=== PATIENT | female | born 1995 | race Caucasian/White ===

== ENCOUNTER 2022-04-13 12:08 | Emergency (ER) | payer OTHER ==
[2022-04-13] MEDS ORDERED: CHERRY SYRUP 10 ML UDC PO ONE (13:09)
[2022-04-13] MEDS ORDERED: DEXAMETHASONE 10 MG/ML VIAL PO STA (13:09)
[2022-04-13] MEDS ORDERED: IPRATROPIUM/ALBUTEROL 3 ML NEB INH STA (13:09)
--- NOTE | 2022-04-13 13:13 | ED Physician Documentation ---
PD HPI CHEST PAIN - Stated complaint Stated Complaint: SOA/CHEST PX - Chief complaint Chief Complaint: Cardiac - History obtained from History obtained from: Patient - History of Present Illness Timing - onset: Last night Timing - onset during: Rest Timing - duration: Hours Timing - details: Gradual onset, Still present Quality: Aching, Sharp Location: Left chest, Left shoulder/arm, Upper back Radiation: No: Jaw, Neck, Back, Abdominal, Left upper extremity, Right upper extremity Improved by: Rest Worsened by: Inspiration, Movement, Palpation Associated symptoms: Shortness of air Similar symptoms before: Diagnosis (asthma exacerbation) Recently seen: Not recently seen - Additional information Additional information: 26-year-old female with a history of asthma since age 15 has had a worsening of her asthma since getting COVID 2 years ago. She had a very hard summer last year and had her last prednisone burst in September. She is developed URI several times in the last 4 months and each time she has had a worsening of her asthma. She has been chided by her doctor for using her albuterol too much. For that reason she used Primatene Mist last night and after she developed a rapid heart rate most of the night and developed chest pain she decided to come to the emergency department. Review of Systems Constitutional: denies: Fever Eyes: denies: Decreased vision Ears: denies: Ear pain Nose: reports: Rhinorrhea / runny nose, Congestion Throat: reports: Sore throat Cardiac: reports: Chest pain / pressure. denies: Palpitations Respiratory: reports: Dyspnea, Cough, Wheezing GI: denies: Abdominal Pain, Nausea, Vomiting, Constipation, Diarrhea : denies: Dysuria, Frequency Skin: denies: Rash Musculoskeletal: reports: Neck pain, Back pain. denies: Extremity pain PD PAST MEDICAL HISTORY - Present Medications Home Medications: Ambulatory Orders Medication Instructions Recorded Confirmed Albuterol Sulf [Ventolin Hfa 1 - 2 puffs INH Q4HR PRN #1 each 04/13/22 Inhaler] Albuterol Sulfate [Proair 90 mcg IH 04/13/22 Digihaler] predniSONE [Deltasone] 40 mg PO DAILY 5 Days #10 tablet 04/13/22 - Allergies Allergies/Adverse Reactions: Allergies Allergy/AdvReac Type Severity Reaction Status Date / Time No Known Drug Allergies Allergy Verified 04/13/22 12:14 PD ED PE NORMAL - Vitals Vital signs reviewed: Yes (tachy and hypertensive ) - General General: Alert and oriented X 3, Well developed/nourished, Other (has tears with history) - HEENT HEENT: Atraumatic, PERRL, EOMI, Ears normal, Moist mucous membranes, Pharynx benign, Dentition benign - Neck Neck: Supple, no meningeal sign, No bony TTP - Cardiac Cardiac: No murmur, Other (tachy to 120) - Respiratory Respiratory: No respiratory distress, Other (inspritory and expritory wheezes symetric and throughout both lung quintana. ) - Abdomen Abdomen: Soft, Non tender - Back Back: No CVA TTP, No spinal TTP - Derm Derm: Normal color, Warm and dry, No rash - Extremities Extremities: No deformity, No edema - Neuro Neuro: Alert and oriented X 3, electric refrigerator servicer 2-12 intact, No motor deficit, No sensory deficit, Normal speech Eye Opening: Spontaneous Motor: Obeys Commands Verbal: Oriented GCS Score: 15 - Psych Psych: Normal mood, Normal affect Results - Vitals Vitals: Vital Signs - 24 hr 04/13/22 04/13/22 04/13/22 12:14 12:44 13:27 Temperature 36.5 C Heart Rate 125 H 95 88 Respiratory 20 20 16 Rate Blood Pressure 150/100 H 142/94 H O2 Saturation 98 98 04/13/22 14:19 Temperature Heart Rate 98 Respiratory 18 Rate Blood Pressure 134/82 H O2 Saturation 93 Oxygen O2 Source Room air - EKG (time done) 1226 Rate: Rate (enter#) (95) Rhythm: NSR [place]: RAD Ischemia: Normal ST segments, Q waves (inferior ) Compare to prior EKG: Old EKG unavailable Computer interpretation: Agree with computer - Rads (name of study) chest Radiology: Prelim report reviewed (Impression: No acute cardiopulmonary process demonstrated radiographically.), EMP read indepedently PD Medical Decision Making - ED course Complexity details: reviewed results, re-evaluated patient, considered differential, d/w patient Reviewed Lab Results: We reviewed an x-ray of the patient's chest which demonstrated no evidence of an infiltrate. We also evaluated an electrocardiogram showing a normal sinus rhythm without evidence of acute STEMI. ED course: 26-year-old female presents to the emergency department with chest and upper back pain following exacerbation of asthma and excessive use of Primatene Mist. Here in the emergency department she is given a dose of dexamethasone and a DuoNeb treatment as well as a dose of Toradol IM. Departure - Departure Disposition: 01 Home, Self Care Clinical Impression: Asthma exacerbation Qualifiers: Asthma severity: moderate Asthma persistence: persistent Qualified Code(s): J45.41 - Moderate persistent asthma with (acute) exacerbation Condition: Stable Instructions: Asthma Dc, ED Reactive Airway Disease Follow-Up: Shreya Flores ARNP [Credentialed Staff Provider] - Prescriptions: Albuterol Sulf [Ventolin Hfa Inhaler] 1 - 2 puffs INH Q4HR PRN #1 each PRN Reason: Shortness Of Air/Wheezing predniSONE [Deltasone] 40 mg PO DAILY 5 Days #10 tablet Comments: Suzette today it looks like you have an exacerbation of your asthma and we are providing a prescription for some prednisone which has been E scribed to the [facility] in [place]. In addition I have E scribed an albuterol inhaler. My recommendation is to take this course of medication and follow-up with the nurse practitioner provided for continued improvement in your asthma. Under ideal circumstances you would be able to get periods of time without having to use an inhaler.
[2022-04-13] MEDS ORDERED: KETOROLAC 30 MG/ML VIAL IM STA (13:15)
--- NOTE | 2022-04-13 13:26 | XRAY Report ---
PROCEDURE: Chest 1 View X-Ray INDICATIONS: Chest pain, shortness of breath TECHNIQUE: One view of the chest was acquired. COMPARISON: None. FINDINGS: Surgical changes and devices: None. Lungs and pleura: No pleural effusions or pneumothorax. Lungs are clear. Mediastinum: Mediastinal contours appear normal. Heart size is normal. Bones and chest wall: No suspicious bony lesions. Overlying soft tissues appear unremarkable. IMPRESSION: No acute cardiopulmonary process demonstrated radiographically. Reviewed by: Juarez Walker MD on 04/13/2022 1:25 PM [facility] Approved by: Juarez Walker MD on 04/13/2022 1:25 PM [facility] Station ID: [id number]
[2022-04-13 14:37] VITALS: BP 133/80
== END 2022-04-13 14:37 | disposition home or self-care (01) ==
LOC: ED 12:08
DX: J45.41 Moderate persistent asthma with (acute) exacerbation (principal)
CPT/HCPCS: 71045; 93005; 94640; 94664; 96372; 99283; 99284; A9270

== ENCOUNTER 2022-06-12 08:00 | Outpatient (CLI) | payer OTHER | END 2022-06-12 23:59 | disposition home or self-care (01) | LOC: LAB.S 08:00 | PROVIDERS: ATTEND Physician Assistant Medical | DX: L03.115 Cellulitis of right lower limb (principal) | CPT/HCPCS: 87070; 87205 ==